=== PATIENT | female | born 1990 | race Caucasian/White ===

== ENCOUNTER 2017-02-03 18:51 | Emergency (ER) | payer SELFPAY ==
[2017-02-03 19:19] VITALS: BP 120/85
--- NOTE | 2017-02-03 19:19 | UC ---
Lower Extremity/Ankle HPI - HPI Summary HPI Summary: Patient has had pain and swelling of the left lower leg, has it it a couple times a work, but pain has increased over the achilles and lower leg - History of Current Complaint Chief Complaint: UCLowerExtremity Stated Complaint: LEFT KNEE TO ANKLE PAIN Time Seen by Provider: 02/03/17 18:56 Hx Obtained From: Patient Hx Last Menstrual Period: 5 days ago ?: No Onset/Duration: Sudden Onset, Lasting Days Severity Initially: Mild Severity Currently: Moderate Aggravating Factor(s): Standing, Ambulation Alleviating Factor(s): Nothing Able to Bear Weight: Yes - Risk Factors Gout Risk Factors: Negative DVT Risk Factors: Negative Septic Arthritis Risk Factor: Negative - Allergies/Home Medications Allergies/Adverse Reactions: Allergies Allergy/AdvReac Type Severity Reaction Status Date / Time No Known Allergies Allergy Verified 02/03/17 19:07 Home Medications: Home Medications Ibuprofen TAB* [Motrin TAB* 600 MG] 1,200 mg PO Q4H PRN 02/03/17 [History Confirmed 02/03/17] PMH/Surg Hx/FS Hx/Imm Hx Previously Healthy: Yes - Surgical History Surgical History: Yes Surgery Procedure, Year, and Place: intestinal surgery when baby - Family History Known Family History: Negative: Cardiac Disease, Hypertension - Social History Alcohol Use: Occasionally Substance Use Type: None Smoking Status (MU): Heavy Every Day Tobacco Smoker Review of Systems Constitutional: Negative Skin: Negative Eyes: Negative ENT: Negative Respiratory: Negative Cardiovascular: Negative Gastrointestinal: Negative Genitourinary: Negative Motor: Negative Musculoskeletal: Arthralgia, Edema, Myalgia Neurological: Negative Psychological: Negative All Other Systems Reviewed And Are Negative: Yes Physical Exam Triage Information Reviewed: Yes Appearance: Well-Appearing, Well-Nourished, Pain Distress Vital Signs: Initial Vital Signs Temp 98.8 F 02/03/17 18:55 Pulse 99 02/03/17 18:55 Resp 22 02/03/17 18:55 BP 120/85 02/03/17 18:55 Pulse Ox 99 02/03/17 18:55 Vital Signs Reviewed: Yes Eye Exam: Normal ENT Exam: Normal Dental Exam: Normal Neck exam: Normal Neck: Positive: Supple, Nontender, No Lymphadenopathy Respiratory Exam: Normal Respiratory: Positive: Chest non-tender, Lungs clear, Normal breath sounds Cardiovascular Exam: Normal Cardiovascular: Positive: RRR, No Murmur, Pulses Normal Abdominal Exam: Normal Abdomen Description: Positive: Nontender, No Organomegaly, Soft Bowel Sounds: Positive: Present Musculoskeletal: Positive: Strength Intact, ROM Intact, Edema @ - in the left ankle and loser leg, neg sorenson test, achilles is tender on palpation but intact, no step off noted, Neurological Exam: Normal Neurological: Positive: Alert, Muscle Tone Normal Psychological Exam: Normal Skin Exam: Normal Lower Extremity Course/Dx - Course Course Of Treatment: hx obtained, exam performed, meds reviewed, xray obtained no fracture, - Differential Dx/Diagnosis Differential Diagnosis/HQI/PQRI: Dislocation, DVT, Fracture (Closed), Sprain, Strain, Tendonitis Provider Diagnoses: lower leg pain. bursitis post calcaneal Discharge - Discharge Plan Condition: Stable Disposition: HOME Patient Education Materials: Ankle Bursitis (ED) Forms: *Work Release Referrals: Suad Wallis MD [Primary Care Provider] - Jordan Acevedo MD [Medical Doctor] - Additional Instructions: 1. rest, elevate, Ice and continue with anti inflammatory medication. 2. Follow up with Dr Acevedo Tomorrow.
--- NOTE | 2017-02-03 19:39 | RAD ---
HISTORY: Left leg pain and swelling COMPARISONS: None VIEWS: 2, Frontal and lateral views of the left foreleg FINDINGS: BONE DENSITY: Normal. BONES: There is no displaced fracture. JOINTS: There is no arthropathy. ALIGNMENT: There is no dislocation. SOFT TISSUES: Unremarkable. OTHER FINDINGS: None. IMPRESSION: NO ACUTE OSSEOUS INJURY. IF SYMPTOMS PERSIST, RECOMMEND REPEAT IMAGING.
== END 2017-02-03 20:16 | disposition home or self-care (01) ==
LOC: UCCORT 18:51
DX: M79.662 Pain in left lower leg (principal); M77.52 Other enthesopathy of left foot and ankle; F17.200 Nicotine dependence, unspecified, uncomplicated
CPT/HCPCS: 99202; G0463